=== PATIENT | female | born 1935 | race Caucasian/White ===

== ENCOUNTER 2016-11-10 08:00 | Outpatient (CLI) | payer MEDICARE, BC | END 2016-11-10 08:01 | disposition home or self-care (01) | DX: M79.661 Pain in right lower leg (principal) ==

== ENCOUNTER 2017-02-02 07:54 | Outpatient (CLI) | payer MEDICARE, BC | END 2017-02-02 07:55 | disposition home or self-care (01) | DX: E03.9 Hypothyroidism, unspecified (principal); E78.2 Mixed hyperlipidemia; E55.9 Vitamin D deficiency, unspecified; Z79.899 Other long term (current) drug therapy ==

== ENCOUNTER 2018-02-08 08:00 | Outpatient (CLI) | payer MEDICARE, BC ==
[2018-02-08 15:00] LABS: BASOPHILS % (AUTO) 0.5 %; EOSINOPHILS # (AUTO) 0.1 10^3/uL (0.0-0.7); EOSINOPHILS % (AUTO) 2.4 %; HGB - HEMOGLOBIN 13.4 g/dL (12.0-16.0); LYMPHOCYTES # (AUTO) 1.4 10^3/uL (1.5-3.5); LYMPHOCYTES % (AUTO) 34.8 %; MEAN CORPUSCULAR HEMOGLOBIN 33.1 pg (27.0-31.0); MEAN CORPUSCULAR HGB CONC 34.2 g/dL (32.0-36.0); MEAN CORPUSCULAR VOLUME 96.8 fL (81.0-99.0); MEAN PLATELET VOLUME 7.4 fL (7.9-10.8); MONOCYTES # (AUTO) 0.4 10^3/uL (0.0-1.0); NEUTROPHILS # (AUTO) 2.2 10^3/uL (1.5-6.6); NEUTROPHILS % (AUTO) 53.3 %; PLT - PLATELET COUNT 255 10^3/uL (130-450); RED BLOOD COUNT 4.03 10^6/uL (4.20-5.40); RED CELL DISTRIBUTION WIDTH 13.7 % (12.0-15.0); WHITE BLOOD COUNT 4.1 x10^3/uL (4.8-10.8)
[2018-02-08 15:14] LABS: ALBUMIN 4.6 g/dL (3.2-5.5); ALBUMIN/GLOBULIN RATIO 1.5 (1.0-2.2); ALKALINE PHOSPHATASE 61 IU/L (42-121); ALT ALANINE AMINOTRANSFERASE 21 IU/L (10-60); AST ASPARTATE AMINOTRANSFERASE 27 IU/L (10-42); BILIRUBIN,TOTAL 1.1 mg/dL (0.2-1.0); BUN - BLOOD UREA NITROGEN 11 mg/dL (6-20); CALCIUM 9.6 mg/dL (8.5-10.3); CARBON DIOXIDE - CO2 24 mmol/L (21-32); CHLORIDE 92 mmol/L (101-111); CHOL/HDL RATIO 2.7 (<4.4); CHOLESTEROL 220 mg/dL; CREATININE 0.6 mg/dL (0.4-1.0); GFR - MDRD 95 (>89); GLUCOSE 80 mg/dL (70-100); HDL CHOLESTEROL 83 mg/dL; LDL CHOLESTEROL,CALCULATED 114 mg/dL; LDL/HDL RATIO 1.4 (<4.4); SODIUM 125 mmol/L (135-145); TOTAL PROTEIN 7.7 g/dL (6.7-8.2); VLDL CHOLESTEROL 23 mg/dL
== END 2018-02-08 08:01 | disposition home or self-care (01) ==
LOC: LAB.R 08:00
PROVIDERS: ATTEND Physician Assistant Medical
DX: E55.9 Vitamin D deficiency, unspecified (principal); Z79.899 Other long term (current) drug therapy; I10 Essential (primary) hypertension; E78.2 Mixed hyperlipidemia
CPT/HCPCS: 80053; 80061; 82306; 83721; 84443; 85025

== ENCOUNTER 2018-03-08 08:00 | Outpatient (CLI) | payer MEDICARE, BC | END 2018-03-08 08:01 | disposition home or self-care (01) | LOC: LAB.N 08:00 | PROVIDERS: ATTEND Physician Assistant Medical | DX: Z00.01 Encounter for general adult medical examination with abnormal findings (principal); Z79.899 Other long term (current) drug therapy | CPT/HCPCS: 36415; 84132; 84295 ==

== ENCOUNTER 2018-04-26 08:00 | Outpatient (CLI) | payer MEDICARE, BC ==
[2018-04-26 12:34] LABS: BASOPHILS % (AUTO) 0.7 %; EOSINOPHILS # (AUTO) 0.1 10^3/uL (0.0-0.7); EOSINOPHILS % (AUTO) 3.2 %; HGB - HEMOGLOBIN 12.5 g/dL (12.0-16.0); LYMPHOCYTES # (AUTO) 1.7 10^3/uL (1.5-3.5); LYMPHOCYTES % (AUTO) 38.3 %; MEAN CORPUSCULAR HEMOGLOBIN 34.1 pg (27.0-31.0); MEAN CORPUSCULAR HGB CONC 35.3 g/dL (32.0-36.0); MEAN CORPUSCULAR VOLUME 96.6 fL (81.0-99.0); MEAN PLATELET VOLUME 7.5 fL (7.9-10.8); MONOCYTES # (AUTO) 0.4 10^3/uL (0.0-1.0); MONOCYTES % (AUTO) 9.5 %; NEUTROPHILS # (AUTO) 2.1 10^3/uL (1.5-6.6); NEUTROPHILS % (AUTO) 48.3 %; PLT - PLATELET COUNT 256 10^3/uL (130-450); RED BLOOD COUNT 3.68 10^6/uL (4.20-5.40); RED CELL DISTRIBUTION WIDTH 13.1 % (12.0-15.0); WHITE BLOOD COUNT 4.4 x10^3/uL (4.8-10.8)
[2018-04-26 13:16] LABS: THYROID STIMULATING HORMONE 1.64 uIU/mL (0.34-5.60)
[2018-04-26 13:18] LABS: FREE T4 (FREE THYROXINE) 1.37 ng/dL (0.58-1.64)
[2018-04-26 13:41] LABS: ALBUMIN 4.2 g/dL (3.2-5.5); ALBUMIN/GLOBULIN RATIO 1.6 (1.0-2.2); ALKALINE PHOSPHATASE 63 IU/L (42-121); ALT ALANINE AMINOTRANSFERASE 20 IU/L (10-60); AST ASPARTATE AMINOTRANSFERASE 24 IU/L (10-42); BUN - BLOOD UREA NITROGEN 12 mg/dL (6-20); CALCIUM 9.9 mg/dL (8.5-10.3); CARBON DIOXIDE - CO2 25 mmol/L (21-32); CHLORIDE 98 mmol/L (101-111); CHOL/HDL RATIO 2.3 (<4.4); CHOLESTEROL 191 mg/dL; CREATININE 0.5 mg/dL (0.4-1.0); GFR - MDRD 117 (>89); GLUCOSE 97 mg/dL (70-100); HDL CHOLESTEROL 83 mg/dL; LDL CHOLESTEROL,CALCULATED 95 mg/dL; LDL/HDL RATIO 1.1 (<4.4); SODIUM 131 mmol/L (135-145); TOTAL PROTEIN 6.8 g/dL (6.7-8.2); VLDL CHOLESTEROL 13 mg/dL
== END 2018-04-26 08:01 ==
LOC: LAB.WCP 08:00
PROVIDERS: ATTEND Physician Assistant
DX: I10 Essential (primary) hypertension (principal); E78.5 Hyperlipidemia, unspecified; E03.9 Hypothyroidism, unspecified
CPT/HCPCS: 36415; 80053; 80061; 83721; 84439; 84443; 85025

== ENCOUNTER 2018-05-15 11:08 | Outpatient (CLI) | payer MEDICARE, BC | END 2018-05-15 11:09 | disposition home or self-care (01) | LOC: DI 11:08 | PROVIDERS: ATTEND Physician Assistant | DX: I10 Essential (primary) hypertension (principal) | CPT/HCPCS: 93306 ==

== ENCOUNTER 2018-05-31 09:08 | Outpatient (CLI) | payer MEDICARE, BC ==
--- NOTE | 2018-05-31 10:31 | Ultrasound Report ---
Reason: ABDOMINAL DISCOMFORT Procedure Date: 05/31/2018 Accession Number: [id number] / [id number] Procedure: US - Abdomen Complete CPT Code: FULL RESULT: EXAM: ABDOMEN ULTRASOUND EXAM DATE: 05/31/2018 09:56 AM. CLINICAL HISTORY: ABDOMINAL DISCOMFORT. COMPARISON: None. TECHNIQUE: Real-time scanning was performed with static images obtained. FINDINGS: Liver: The liver is mildly and diffusely echogenic. Normal contour. No masses. 11.9 cm. Main portal vein flow: Hepatopetal. Gallbladder: No stones, wall thickening, or sonographic Huang's sign. Biliary System: Common bile duct measures 7 mm. No intrahepatic or extrahepatic ductal dilation. Pancreas: Visualized pancreas is unremarkable. Kidneys: Right: 10.8 cm longitudinally. No contour-deforming mass, stones, or hydronephrosis. There is mild ureterectasis. Left: 10.3 cm longitudinally. No contour-deforming mass, stones, or hydronephrosis. Spleen: 8 cm. Normal in size and echotexture. Aorta and Inferior Vena Cava: Unremarkable. IMPRESSION: Mild hepatic steatosis RADIA
== END 2018-05-31 09:09 | disposition home or self-care (01) ==
LOC: DI 09:08
PROVIDERS: ATTEND Physician Assistant
DX: K76.0 Fatty (change of) liver, not elsewhere classified (principal); R10.9 Unspecified abdominal pain
CPT/HCPCS: 76700

== ENCOUNTER 2018-10-25 09:20 | Outpatient (CLI) | payer MEDICARE, BC ==
[2018-10-25 12:24] LABS: BASOPHILS % (AUTO) 0.9 %; EOSINOPHILS # (AUTO) 0.1 10^3/uL (0.0-0.7); EOSINOPHILS % (AUTO) 2.4 %; HGB - HEMOGLOBIN 12.6 g/dL (12.0-16.0); LYMPHOCYTES # (AUTO) 1.3 10^3/uL (1.5-3.5); LYMPHOCYTES % (AUTO) 31.8 %; MEAN CORPUSCULAR HEMOGLOBIN 33.8 pg (27.0-31.0); MEAN CORPUSCULAR HGB CONC 34.6 g/dL (32.0-36.0); MEAN CORPUSCULAR VOLUME 97.7 fL (81.0-99.0); MEAN PLATELET VOLUME 7.3 fL (7.9-10.8); MONOCYTES # (AUTO) 0.4 10^3/uL (0.0-1.0); MONOCYTES % (AUTO) 9.2 %; NEUTROPHILS # (AUTO) 2.3 10^3/uL (1.5-6.6); NEUTROPHILS % (AUTO) 55.7 %; PLT - PLATELET COUNT 265 10^3/uL (130-450); RED BLOOD COUNT 3.72 10^6/uL (4.20-5.40); RED CELL DISTRIBUTION WIDTH 13.5 % (12.0-15.0); WHITE BLOOD COUNT 4.2 x10^3/uL (4.8-10.8)
[2018-10-25 12:47] LABS: ALBUMIN 4.3 g/dL (3.2-5.5); ALBUMIN/GLOBULIN RATIO 1.5 (1.0-2.2); CALCIUM 9.8 mg/dL (8.5-10.3); CREATININE 0.6 mg/dL (0.4-1.0); TOTAL PROTEIN 7.1 g/dL (6.7-8.2)
== END 2018-10-25 23:59 | disposition home or self-care (01) ==
LOC: LAB.WCP 09:20
PROVIDERS: ATTEND Physician Assistant
DX: I10 Essential (primary) hypertension (principal)
CPT/HCPCS: 36415; 80053; 85025

== ENCOUNTER 2019-02-26 08:00 | Outpatient (CLI) | payer MEDICARE, BC ==
[2019-02-26 19:03] LABS: BASOPHILS % (AUTO) 0.6 %; EOSINOPHILS # (AUTO) 0.1 10^3/uL (0.0-0.7); EOSINOPHILS % (AUTO) 1.9 %; HGB - HEMOGLOBIN 12.8 g/dL (12.0-16.0); LYMPHOCYTES # (AUTO) 1.3 10^3/uL (1.5-3.5); LYMPHOCYTES % (AUTO) 29.4 %; MEAN CORPUSCULAR HEMOGLOBIN 33.2 pg (27.0-31.0); MEAN CORPUSCULAR HGB CONC 34.2 g/dL (32.0-36.0); MEAN PLATELET VOLUME 7.2 fL (7.9-10.8); MONOCYTES # (AUTO) 0.4 10^3/uL (0.0-1.0); MONOCYTES % (AUTO) 8.4 %; NEUTROPHILS # (AUTO) 2.6 10^3/uL (1.5-6.6); NEUTROPHILS % (AUTO) 59.7 %; PLT - PLATELET COUNT 281 10^3/uL (130-450); RED BLOOD COUNT 3.86 10^6/uL (4.20-5.40); RED CELL DISTRIBUTION WIDTH 13.5 % (12.0-15.0); WHITE BLOOD COUNT 4.3 x10^3/uL (4.8-10.8)
[2019-02-26 19:21] LABS: ALBUMIN 4.6 g/dL (3.2-5.5); ALBUMIN/GLOBULIN RATIO 1.7 (1.0-2.2); BILIRUBIN,TOTAL 0.7 mg/dL (0.2-1.0); CALCIUM 10.2 mg/dL (8.5-10.3); CREATININE 0.7 mg/dL (0.4-1.0); TOTAL PROTEIN 7.3 g/dL (6.7-8.2)
== END 2019-02-26 08:01 | disposition home or self-care (01) ==
LOC: LAB.WCP 08:00
PROVIDERS: ATTEND Physician Assistant
DX: R53.82 Chronic fatigue, unspecified (principal); R41.3 Other amnesia
CPT/HCPCS: 36415; 80053; 82607; 82746; 84443; 85025

== ENCOUNTER 2019-08-02 09:08 | Outpatient (CLI) | payer MEDICARE, BC ==
[2019-08-02 12:55] LABS: BASOPHILS % (AUTO) 0.5 %; EOSINOPHILS # (AUTO) 0.1 10^3/uL (0.0-0.7); EOSINOPHILS % (AUTO) 1.5 %; HGB - HEMOGLOBIN 12.6 g/dL (12.0-16.0); LYMPHOCYTES # (AUTO) 1.5 10^3/uL (1.5-3.5); LYMPHOCYTES % (AUTO) 24.6 %; MEAN CORPUSCULAR HEMOGLOBIN 31.6 pg (27.0-31.0); MEAN CORPUSCULAR HGB CONC 33.8 g/dL (32.0-36.0); MEAN CORPUSCULAR VOLUME 93.5 fL (81.0-99.0); MEAN PLATELET VOLUME 9.3 fL (7.9-10.8); MONOCYTES # (AUTO) 0.6 10^3/uL (0.0-1.0); NEUTROPHILS # (AUTO) 3.8 10^3/uL (1.5-6.6); NEUTROPHILS % (AUTO) 62.7 %; PLT - PLATELET COUNT 286 10^3/uL (130-450); RED BLOOD COUNT 3.99 10^6/uL (4.20-5.40); RED CELL DISTRIBUTION WIDTH 12.7 % (12.0-15.0); WHITE BLOOD COUNT 6.1 x10^3/uL (4.8-10.8)
[2019-08-02 13:19] LABS: ALBUMIN 4.4 g/dL (3.2-5.5); ALBUMIN/GLOBULIN RATIO 1.6 (1.0-2.2); BILIRUBIN,TOTAL 0.7 mg/dL (0.2-1.0); CALCIUM 9.6 mg/dL (8.5-10.3); CREATININE 0.7 mg/dL (0.4-1.0); TOTAL PROTEIN 7.2 g/dL (6.7-8.2)
== END 2019-08-02 23:59 | disposition home or self-care (01) ==
LOC: LAB.WCP 09:08
PROVIDERS: ATTEND Physician Assistant
DX: E87.1 Hypo-osmolality and hyponatremia (principal); E03.9 Hypothyroidism, unspecified; R19.7 Diarrhea, unspecified
CPT/HCPCS: 36415; 80053; 84443; 85025

== ENCOUNTER 2019-08-12 09:31 | Outpatient (CLI) | payer MEDICARE, BC ==
[2019-08-12 16:03] LABS: CALCIUM 9.7 mg/dL (8.5-10.3); CREATININE 0.8 mg/dL (0.4-1.0)
== END 2019-08-12 23:59 | disposition home or self-care (01) ==
LOC: LAB.WCP 09:31
PROVIDERS: ATTEND Physician Assistant
DX: E87.1 Hypo-osmolality and hyponatremia (principal)
CPT/HCPCS: 36415; 80048

== ENCOUNTER 2020-08-25 16:54 | Outpatient (CLI) | payer MEDICARE, BC ==
--- NOTE | 2020-08-25 17:35 | XRAY Report ---
PROCEDURE: Hand 3 View RT INDICATIONS: Rule out fracture s/p fall TECHNIQUE: 3 views of the hand(s) acquired. COMPARISON: None FINDINGS: Bones: Acute oblique fracture through distal shaft and neck of fifth metacarpal bone is seen with sli ght volar and lateral displacement at fracture site. Osteoarthritic changes throughout right-hand an d wrist is seen. No suspicious bony lesions. Soft tissues: No suspicious soft tissue calcifications. Soft tissue swelling over fifth metacarpal f racture site is seen. IMPRESSION: Acute slightly displaced oblique fracture through distal shaft and neck of fifth metacarpal bone as a sanjuanita. Reviewed by: Kamari Xiong MD on 08/25/2020 4:33 PM [place] Approved by: Kamari Xiong MD on 08/25/2020 4:33 PM [facility] [place] Station ID: [id number]
--- NOTE | 2020-08-25 17:36 | XRAY Report ---
PROCEDURE: Shoulder 3 View RT INDICATIONS: Rule out fracture s/p fall TECHNIQUE: 3 views of the shoulder were acquired. COMPARISON: None. FINDINGS: Bones: Acute comminuted fracture involving distal right clavicle is seen with minimal depression of d istal clavicular head and overlapping of fracture site. Acromioclavicular joint and glenohumeral join t osteoarthritic changes are seen. No dislocation. No suspicious bony lesions. Visualized ribs appea r intact. Soft tissues: No suspicious soft tissue calcifications. IMPRESSION: Acute comminuted slightly depressed right distal clavicular fracture as above. Reviewed by: Kamari Xiong MD on 08/25/2020 4:35 PM [place] Approved by: Kamari Xiong MD on 08/25/2020 4:35 PM [facility] Station ID: [id number]
== END 2020-08-25 16:55 | disposition home or self-care (01) ==
LOC: DI 16:54
PROVIDERS: ATTEND Nurse Practitioner Gerontology
DX: S62.326A Displaced fracture of shaft of fifth metacarpal bone, right hand, initial encounter for closed fracture (principal); S62.336A Displaced fracture of neck of fifth metacarpal bone, right hand, initial encounter for closed fracture; S42.031A Displaced fracture of lateral end of right clavicle, initial encounter for closed fracture; M19.031 Primary osteoarthritis, right wrist; M19.011 Primary osteoarthritis, right shoulder

== ENCOUNTER 2020-10-20 09:13 | Outpatient (CLI) | payer MEDICARE, BC ==
--- NOTE | 2020-10-20 12:01 | Ultrasound Report ---
PROCEDURE: Retroperitoneal INDICATIONS: HISTORY UTI TECHNIQUE: Real-time scanning was performed of the retroperitoneal organs, with image documentation. COMPARISON: Prior abdominal ultrasound 05/31/2018 FINDINGS: Kidneys: Kidneys are normal in size. Right kidney measures 12.4 cm long; left kidney measures 10.8 cm long. Right renal cortical thickness is 0.8 cm; left renal cortical thickness is 1.3 cm. No miriam d masses, hydronephrosis, or nephrolithiasis on the left. On the right there is moderate to moderate ly severe hydronephrosis and hydroureter with the distal ureter not seen due to overlying bowel gas. No urinary tract stones are seen bilaterally. A left ureteral jet was not visualized at the bladder a ssessment. A normal right ureteral jet was seen. Pancreas: Visualized portions of the pancreas are sonographically normal. Aorta: Visualized aorta is normal in caliber at 3 cm or less. Iliac arteries: Proximal common iliac arteries are normal in caliber at 2.5 cm or less. IVC: Intrahepatic inferior vena cava is patent. Miscellaneous: No free abdominal fluid. Prevoid bladder volume is 201 cc, IMPRESSION: Right-sided hydronephrosis and hydroureter which extends inferiorly to an area obscured by overlying bowel gas. Both mass and a urinary tract stone involving the ureter could produce this appearance and for this reason follow-up by CT IVP scanning is recommended which will include noncontrast scanning for most accurate stone detection and excretion phase of contrast enhanced imaging for identification of potential urothelial mass. Reviewed by: Steve Dacosta MD on 10/20/2020 12:00 PM [facility] Approved by: Steve Dacosta MD on 10/20/2020 12:00 PM PST Station ID: [id number]
== END 2020-10-20 09:14 | disposition home or self-care (01) ==
LOC: DI 09:13
PROVIDERS: ATTEND Urology
DX: N13.30 Unspecified hydronephrosis (principal)

== ENCOUNTER 2020-10-23 18:14 | Outpatient (CLI) | payer MEDICARE, BC ==
--- NOTE | 2020-10-23 13:53 | XRAY Report ---
PROCEDURE: Hand 3 View RT INDICATIONS: DISPLACED FX OF NECK OF FIFTH METACARPAL TECHNIQUE: 3 views of the hand(s) acquired. COMPARISON: 08/25/2020 FINDINGS: Grossly unchanged alignment of fifth carpal fracture. There is interval healing callus formation Soft tissues: No suspicious soft tissue calcifications. First CMC and triscaphe joint degeneration. IMPRESSION: Unchanged alignment of healing right fifth metacarpal fracture Reviewed by: Destin Jordan MD on 10/23/2020 1:52 PM PST Approved by: Destin Jordan MD on 10/23/2020 1:52 PM PST Station ID: [id number]
== END 2020-10-23 23:59 | disposition home or self-care (01) ==
LOC: DI.N 18:14
PROVIDERS: ATTEND Physician Assistant
DX: S62.336A Displaced fracture of neck of fifth metacarpal bone, right hand, initial encounter for closed fracture (principal)

== ENCOUNTER 2020-10-27 08:00 | Outpatient (CLI) | payer MEDICARE, BC ==
--- NOTE | 2020-10-27 12:58 | XRAY Report ---
PROCEDURE: Clavicle RT INDICATIONS: RIGHT CLAVICULAR FRACTURE TECHNIQUE: 2 views of the clavicle were acquired. COMPARISON: 08/25/2020. FINDINGS: Bones: Again noted is inferiorly displaced distal right clavicular shaft fracture with interval callu s formation surrounding fracture site. Overall alignment of right clavicle is unchanged. No new fract ure or dislocation. No suspicious bony lesions. Soft tissues: No suspicious soft tissue calcifications. IMPRESSION: Healing mildly depressed right distal clavicular fracture with stable right clavicular alignment. No new fracture or dislocation. Reviewed by: Kamari Xiong MD on 10/27/2020 12:57 PM PST Approved by: Kamari Xiong MD on 10/27/2020 12:57 PM PST Station ID: [id number]
== END 2020-10-27 23:59 | disposition home or self-care (01) ==
LOC: DI.N 08:00
PROVIDERS: ATTEND Nurse Practitioner Gerontology
DX: S42.031A Displaced fracture of lateral end of right clavicle, initial encounter for closed fracture (principal)

== ENCOUNTER 2020-12-25 16:59 | Outpatient (CLI) | payer MEDICARE, BC | END 2020-12-25 17:00 | disposition critical access hospital (66) | LOC: EMS 16:59 | DX: S09.90XA Unspecified injury of head, initial encounter (principal); W03.XXXA Other fall on same level due to collision with another person, initial encounter; Y92.198 Other place in other specified residential institution as the place of occurrence of the external cause | CPT/HCPCS: A0425; A0429 ==

== ENCOUNTER 2020-12-25 17:16 | Emergency (ER) | payer MEDICARE, BC ==
[2020-12-25] MEDS ORDERED: TETANUS/DIPHTHERIA/PERTUSSIS 0.5 ML SYRINGE IM ONE (17:28)
--- OUTSIDE RECORDS SUMMARY | 2020-12-25 17:37 | EXTERNAL MEDICAL SUMMARY RPT | Continuity of Care Document ---
:1935 Demographics Phone Unavailable Preferred Language Unknown Marital Status Unknown Cheondoism Affiliation Unknown Race Unknown Ethnic Group Unknown Author Organization [place] Address [address] [phone] Phone Social History date description facility [phone]
[2020-12-25] MEDS ORDERED: MORPHINE 2 MG/ML CARPUJECT IVP STA (18:07)
--- NOTE | 2020-12-25 18:07 | ED Physician Documentation ---
History of Present Illness - Stated complaint Stated Complaint: GLF - Chief complaint Chief Complaint: Trauma Hd/Nk - History obtained from History obtained from: Patient, EMS - History of Present Illness Timing: Today Pain level max: 7 Pain level now: 5 - Additonal information Additional information: Patient is an 85-year-old female who presents to the emergency department after ground-level fall today. She tripped and fell walking to the dining room for dinner. Landed on her face. Has a laceration to the right eyebrow and bridge of right nose. Swelling to the right periorbital area. Denies any other injuries. Patient is not on blood thinners. Unknown last tetanus Review of Systems Ten Systems: 10 systems reviewed and negative Constitutional: denies: Fever, Chills Ears: denies: Ear pain Nose: denies: Rhinorrhea / runny nose, Congestion Throat: denies: Sore throat Cardiac: denies: Chest pain / pressure, Palpitations Respiratory: denies: Dyspnea, Cough GI: denies: Vomiting, Diarrhea Skin: denies: Rash Musculoskeletal: denies: Neck pain, Back pain Neurologic: denies: Focal weakness, Numbness, Confused PD PAST MEDICAL HISTORY - Present Medications Home Medications: Ambulatory Orders Medication Instructions Recorded Confirmed Aspirin [[place] Aspirin] 81 mg PO DAILY 12/25/20 12/25/20 Atorvastatin [Lipitor] 20 mg PO DAILY 12/25/20 12/25/20 Cholecalciferol [Vitamin D3] 2,000 unit PO DAILY 12/25/20 12/25/20 Donepezil [Aricept] 2 tab PO DAILY 12/25/20 12/25/20 Levothyroxine [Synthroid] 75 mcg PO DAILY 12/25/20 12/25/20 Magnesium Hydroxide [Dulcolax] 400 mg PO DAILY 12/25/20 12/25/20 - Allergies Allergies/Adverse Reactions: Allergies Allergy/AdvReac Type Severity Reaction Status Date / Time amoxicillin Allergy Rash Verified 12/25/20 17:32 PD ED PE NORMAL - Vitals Vital signs reviewed: Yes - General General: Alert and oriented X 3, No acute distress, Well developed/nourished - HEENT HEENT: Atraumatic, PERRL, Moist mucous membranes, Other (Laceration to the bridge of the right nose, there is also a laceration to the right periorbital ecchymosis to the right orbit. Tenderness and swelling over the bridge of the nose. Otherwise normal facial exam. 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, No motor deficit, No sensory deficit, Normal speech Eye Opening: Spontaneous Motor: Obeys Commands Verbal: Oriented GCS Score: 15 - Psych Psych: Normal mood, Normal affect Results - Vitals Vitals: Vital Signs - 24 hr 12/25/20 12/25/20 17:24 18:37 Temperature 36.0 C L Heart Rate 82 84 Respiratory 14 15 Rate Blood Pressure 166/86 H 167/76 H O2 Saturation 97 97 Oxygen O2 Source Room air - Labs Labs: Laboratory Tests 12/25/20 12/25/20 12/25/20 18:15 18:15 18:15 WBC 6.6 RBC 3.32 L Hgb 10.5 L Hct 32.3 L MCV 97.3 MCH 31.6 H MCHC 32.5 RDW 13.8 Plt Count 251 MPV 8.5 Neut # (Auto) 4.5 Lymph # (Auto) 1.4 L Newberry # (Auto) 0.6 Eos # (Auto) 0.1 Baso # (Auto) 0.0 Absolute Nucleated RBC 0.00 Nucleated RBC % 0.0 PT 11.2 INR 1.0 APTT 26.1 Sodium 126 L Potassium 3.5 Chloride 94 L Carbon Dioxide 23 Anion Gap 9.0 BUN 17 Creatinine 0.9 Estimated GFR (MDRD) 59 L Glucose 97 Calcium 9.2 Total Bilirubin 0.9 AST 22 ALT 19 Alkaline Phosphatase 69 Total Protein 6.5 L Albumin 3.9 Globulin 2.6 Albumin/Globulin Ratio 1.5 - Rads (name of study) CT head Radiology: Prelim report reviewed, EMP read contemporaneously, See rad report CT maxillofacial Radiology: Prelim report reviewed, EMP read contemporaneously, See rad report CT cervical spine Radiology: Prelim report reviewed, EMP read contemporaneously, See rad report Procedures - Laceration (location) right eyebrow Length in cm: 2 Wound type: Irregular, Superficial, Clean Neurovascular status: Sensory intact, Motor intact, Vascular intact Wound preparation: Irrigated copiously NS, Wound explored, To the base Skin layer closure: Dermabond Other: Patient tolerated well, No complications, Neurovascular intact R nasal bridge Length in cm: 1 Wound type: Linear, Superficial, Clean Neurovascular status: Sensory intact, Motor intact, Vascular intact Wound preparation: Irrigated copiously NS Skin layer closure: Dermabond Other: Patient tolerated well, No complications, Neurovascular intact PD MEDICAL DECISION MAKING - ED course Complexity details: reviewed results, re-evaluated patient, considered differential, d/w patient ED course: Lacerations repaired with Dermabond. Tolerated well. Patient has a subdural hemorrhage. Will need transfer for higher level of care. Discussed the case with Dr. Ashraf, trauma surgery at [facility] in [place] who accepts in transfer. Discussed with Dr. Ibarra, emergency department physician who graciously accepts in transfer as well. Tdap given. COBRA forms completed. This document was made in part using voice recognition software. While efforts are made to proofread this document, sound alike and grammatical errors may occur. CT Maxillofacial" IMPRESSION: 1. Comminuted, mildly displaced bilateral nasal bone fractures. 2. Minimally displaced oblique fracture of the anterosuperior nasal septum. 3. Right frontal scalp hematoma. 4. Chronic left maxillary paranasal sinus disease. CT HEAD IMPRESSION: 1. Acute extra-axial hemorrhage along the left posterior parieto-occipital convexity measuring up to 13 mm in thickness. There is mild mass effect on the occipital horn of left lateral ventricle without midline shift or transtentorial herniation. 2. Right frontal scalp hematoma. No acute calvarial fracture is seen. 3. Facial structures are better evaluated on the dedicated maxillofacial CT performed on the same day. Please see report for full details. CT C-spine IMPRESSION: 1. No acute cervical spine fracture or paraspinous edema. 2. Multilevel spondylosis including grade 1 anterolisthesis of C2 on C3 and C3 on C4 as well as grade 1 anterolisthesis of C4 on C5. Departure - Departure Disposition: 02 Transfer Acute Care Hosp Clinical Impression: Subdural hemorrhage Nasal bone fractures Qualifiers: Encounter type: initial encounter Fracture type: closed Qualified Code(s): S02.2XXA - Fracture of nasal bones, initial encounter for closed fracture Facial laceration Qualifiers: Encounter type: initial encounter Qualified Code(s): S01.81XA - Laceration without foreign body of other part of head, initial encounter Condition: Stable
--- NOTE | 2020-12-25 18:11 | CT Report ---
PROCEDURE: HEAD WO INDICATIONS: fall, head injury TECHNIQUE: Noncontrast 4.5 mm thick angled axial sections acquired from the foramen magnum to the vertex. For r adiation dose reduction, the following was used: automated exposure control, adjustment of mA and/or kV according to patient size. COMPARISON: None. FINDINGS: Image quality: Excellent. CSF spaces: Mixed density, but predominantly hyperattenuating, extra-axial hemorrhage is seen along the left parieto-occipital convexity measuring up to 13 mm in thickness. No adjacent skull fracture i s identified. There is mild mass effect on the left posterior cerebral hemisphere with mild narrowing of the occipital horn of the left lateral ventricle without significant midline shift or transtentor ial herniation. No acute subarachnoid blood products are identified. Brain: No intraparenchymal hemorrhage or contusion is seen. Scattered hypodensities in the subcortica l and periventricular white matter compatible with chronic microvascular ischemic changes. There is m ild diffuse age-related cerebral volume loss. Skull and face: A left frontal scalp hematoma is noted. Nasal bone fractures are better visualized on the dedicated maxillofacial CT performed at the same time. Postsurgical changes are seen in the left globe from prior cataract/cataract surgery. Chronic appearing thickening of the right parietal tequila rium is seen without surrounding edema or hemorrhage. Sinuses: The mastoid air cells are clear. There is partial opacification of the anterior nasal cavity . Mucosal thickening is seen in the bilateral ethmoid air cells in the left maxillary sinus. The fron alexa and sphenoid sinuses are clear. IMPRESSION: 1. Acute extra-axial hemorrhage along the left posterior parieto-occipital convexity measuring up to 13 mm in thickness. There is mild mass effect on the occipital horn of left lateral ventricle withou t midline shift or transtentorial herniation. 2. Right frontal scalp hematoma. No acute calvarial fracture is seen. 3. Facial structures are better evaluated on the dedicated maxillofacial CT performed on the same da y. Please see report for full details. Findings were discussed with the ordering physician, Dr. Olson, by telephone on 12/25/2020 at 6:04 PM. Reviewed by: Seb Mayer MD on 12/25/2020 6:10 PM PDT Approved by: Seb Mayer MD on 12/25/2020 6:10 PM PDT Station ID: [id number]
--- NOTE | 2020-12-25 18:18 | CT Report ---
PROCEDURE: MAXILLOFACIAL WO INDICATIONS: fall, R periorbital and nasal swelling/laceration TECHNIQUE: Noncontrast 1.5 mm thick axial images acquired from the mandible through the frontal sinuses, with co foster and sagittal reformatting. For radiation dose reduction, the following was used: automated ex posure control, adjustment of mA and/or kV according to patient size. COMPARISON: None. FINDINGS: Image quality: Excellent. Bones and teeth: A right frontal periorbital scalp hematoma is seen. The orbits and included calvari um are intact. Comminuted, mildly displaced nasal bone fractures are seen bilaterally with surroundin g edema/hemorrhage. The nasal septum demonstrates a minimally displaced fracture anteriorly (image 11 of coronal series 5). There is circumferential mucosal thickening in the left maxillary sinus with c alcified material inferiorly that is most likely related to chronic sinusitis. No acute maxillary sin us fracture is seen. Visualized portions of the mandible demonstrate no fractures or subluxation. De generative changes are seen in the temporomandibular joints bilaterally. Zygomatic arches are intact. Pterygoid plates are intact. Visualized portions of the skull base and auditory canals are intact. The cervical spine is better evaluated on dedicated cervical spine CT performed the same time. Plea se see the report from that study for full details. Sinuses: Moderate mucosal thickening is seen in the left maxillary sinus with calcified material, mos t likely related to chronic sinusitis. The right maxillary sinus is clear. There is mucosal thickenin g in the bilateral anterior ethmoid air cells. The sphenoid sinuses and frontal sinuses are clear. Th e mastoid air cells are clear. Soft tissues a right frontal scalp hematoma is noted. Soft tissue edema is seen overlying the nose. N o enlarged lymph nodes. Thinning of the right ocular lens is compatible with prior cataract/catarac t surgery. Vascular: Visualized vascular structures appear normal in the absence of contrast. Bony vascular fo ramina and canals are intact. IMPRESSION: 1. Comminuted, mildly displaced bilateral nasal bone fractures. 2. Minimally displaced oblique fracture of the anterosuperior nasal septum. 3. Right frontal scalp hematoma. 4. Chronic left maxillary paranasal sinus disease. Reviewed by: Seb Mayer MD on 12/25/2020 6:17 PM PDT Approved by: Seb Mayer MD on 12/25/2020 6:17 PM PDT Station ID: [id number]
[2020-12-25 18:22] LABS: BASOPHILS % (AUTO) 0.5 %; EOSINOPHILS # (AUTO) 0.1 10^3/uL (0.0-0.7); EOSINOPHILS % (AUTO) 0.9 %; HCT - HEMATOCRIT 32.3 % (37.0-47.0); HGB - HEMOGLOBIN 10.5 g/dL (12.0-16.0); LYMPHOCYTES # (AUTO) 1.4 10^3/uL (1.5-3.5); LYMPHOCYTES % (AUTO) 20.9 %; MEAN CORPUSCULAR HEMOGLOBIN 31.6 pg (27.0-31.0); MEAN CORPUSCULAR HGB CONC 32.5 g/dL (32.0-36.0); MEAN CORPUSCULAR VOLUME 97.3 fL (81.0-99.0); MEAN PLATELET VOLUME 8.5 fL (7.9-10.8); MONOCYTES # (AUTO) 0.6 10^3/uL (0.0-1.0); MONOCYTES % (AUTO) 9.6 %; NEUTROPHILS # (AUTO) 4.5 10^3/uL (1.5-6.6); NEUTROPHILS % (AUTO) 67.6 %; PLT - PLATELET COUNT 251 10^3/uL (130-450); RED BLOOD COUNT 3.32 10^6/uL (4.20-5.40); RED CELL DISTRIBUTION WIDTH 13.8 % (12.0-15.0); WHITE BLOOD COUNT 6.6 x10^3/uL (4.8-10.8)
--- NOTE | 2020-12-25 18:22 | CT Report ---
PROCEDURE: CERVICAL SPINE WO INDICATIONS: fall. neck pain TECHNIQUE: Noncontrast 3 mm thick sections acquired from the skull base to the T4 level. Sagittal and coronal r eformats were then constructed. For radiation dose reduction, the following was used: automated exp osure control, adjustment of mA and/or kV according to patient size. COMPARISON: None. FINDINGS: Image quality: Excellent. Bones: No acute fracture. There is mild grade 1 anterolisthesis of C2 on C3 and C3 on C4, and mild grade 1 retrolisthesis of C4 on C5. Findings are most likely related to degenerative changes rather t colvin acute injury given lack of surrounding edema. Multilevel degenerative disc disease is seen throug hout the cervical spine from C2-3 through C6-7. Uncovertebral and facet hypertrophy are seen througho ut the cervical spine, which are most severe at the left C2-3 facet. No significant narrowing of the bony spinal canal is seen. Visualized superior ribs are intact. Bilateral temporomandibular joint de generative changes are noted. Soft tissues: Prevertebral soft tissues are normal in thickness. No paravertebral hematomas. No ap ical pneumothoraces. IMPRESSION: 1. No acute cervical spine fracture or paraspinous edema. 2. Multilevel spondylosis including grade 1 anterolisthesis of C2 on C3 and C3 on C4 as well as grad e 1 anterolisthesis of C4 on C5. Reviewed by: Seb Mayer MD on 12/25/2020 6:21 PM PDT Approved by: Seb Mayer MD on 12/25/2020 6:21 PM PDT Station ID: [id number]
[2020-12-25 18:30] LABS: PT - PROTHROMBIN TIME 11.2 secs (9.9-12.6)
[2020-12-25 18:33] LABS: ALBUMIN 3.9 g/dL (3.2-5.5); ALBUMIN/GLOBULIN RATIO 1.5 (1.0-2.2); BILIRUBIN,TOTAL 0.9 mg/dL (0.2-1.0); CALCIUM 9.2 mg/dL (8.5-10.3); CREATININE 0.9 mg/dL (0.4-1.0); POTASSIUM 3.5 mmol/L (3.5-5.0); TOTAL PROTEIN 6.5 g/dL (6.7-8.2)
[2020-12-25 18:37] LABS: PARTIAL THROMBOPLASTIN TIME 26.1 secs (24.9-33.3)
[2020-12-25 19:09] VITALS: BP 152/74
[2020-12-25 19:55] LABS: B. PARAPERTUSSIS- RESP PCR PAN NOT DETECTED; B. PERTUSSIS- RESP PCR PANEL NOT DETECTED; C. PNEUMONIAE- RESP PCR PANEL NOT DETECTED; CORONAVIRUS 229E-RESP PCR NOT DETECTED; CORONAVIRUS HKU1-RESP PCR NOT DETECTED; CORONAVIRUS NL63-RESP PCR NOT DETECTED; CORONAVIRUS OC43-RESP PCR NOT DETECTED; HUMAN METAPNEUMOVIRUS NOT DETECTED; INFLUENZA A- RESP PCR PANEL NOT DETECTED; INFLUENZA B - RESP PCR PANEL NOT DETECTED; M. PNEUMONIAE- RESP PCR PANEL NOT DETECTED; PARAINFLUENZA VIRUS 1 NOT DETECTED; PARAINFLUENZA VIRUS 2 NOT DETECTED; PARAINFLUENZA VIRUS 3 NOT DETECTED; PARAINFLUENZA VIRUS 4 NOT DETECTED; RHINOVIRUS/ENTEROVIRUS NOT DETECTED; RSV- RESP PCR PANEL NOT DETECTED; SARS-CoV-2 -RESP PCR PANEL NOT DETECTED
== END 2020-12-25 19:40 | disposition short-term general hospital (02) ==
LOC: EDUNIT# → ED 17:16
DX: S06.5X0A Traumatic subdural hemorrhage without loss of consciousness, initial encounter (principal); S02.2XXA Fracture of nasal bones, initial encounter for closed fracture; S01.21XA Laceration without foreign body of nose, initial encounter; S01.111A Laceration without foreign body of right eyelid and periocular area, initial encounter; S01.81XA Laceration without foreign body of other part of head, initial encounter; S00.83XA Contusion of other part of head, initial encounter; W01.0XXA Fall on same level from slipping, tripping and stumbling without subsequent striking against object, initial encounter; Y93.01 Activity, walking, marching and hiking; Y92.128 Other place in nursing home as the place of occurrence of the external cause; Z23 Encounter for immunization; Z20.822 Contact with and (suspected) exposure to COVID-19; M47.812 Spondylosis without myelopathy or radiculopathy, cervical region; Z79.82 Long term (current) use of aspirin
CPT/HCPCS: 0202U; 12013; 36415; 80053; 85025; 85610; 85730; 90471; 99284

== ENCOUNTER 2020-12-25 19:46 | Outpatient (CLI) | payer MEDICARE, BC | END 2020-12-25 19:47 | disposition short-term general hospital (02) | LOC: EMS 19:46 | PROVIDERS: ATTEND Emergency Medicine | DX: S06.5X9A Traumatic subdural hemorrhage with loss of consciousness of unspecified duration, initial encounter (principal); S02.2XXA Fracture of nasal bones, initial encounter for closed fracture; W19.XXXA Unspecified fall, initial encounter | CPT/HCPCS: A0425; A0426 ==

== ENCOUNTER 2020-12-31 18:27 | Emergency (ER) | payer MEDICARE, BC ==
--- OUTSIDE RECORDS SUMMARY | 2020-12-31 18:30 | EXTERNAL MEDICAL SUMMARY RPT | Continuity of Care Document ---
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
--- OUTSIDE RECORDS SUMMARY | 2020-12-31 18:38 | EXTERNAL MEDICAL SUMMARY RPT | Continuity of Care Document ---
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
[2020-12-31 19:07] LABS: BASOPHILS % (AUTO) 0.7 %; EOSINOPHILS # (AUTO) 0.1 10^3/uL (0.0-0.7); EOSINOPHILS % (AUTO) 2.1 %; HGB - HEMOGLOBIN 10.5 g/dL (12.0-16.0); LYMPHOCYTES # (AUTO) 1.6 10^3/uL (1.5-3.5); LYMPHOCYTES % (AUTO) 28.3 %; MEAN CORPUSCULAR HEMOGLOBIN 32.2 pg (27.0-31.0); MEAN CORPUSCULAR HGB CONC 33.9 g/dL (32.0-36.0); MEAN CORPUSCULAR VOLUME 95.1 fL (81.0-99.0); MEAN PLATELET VOLUME 8.7 fL (7.9-10.8); MONOCYTES # (AUTO) 0.6 10^3/uL (0.0-1.0); MONOCYTES % (AUTO) 9.7 %; NEUTROPHILS # (AUTO) 3.4 10^3/uL (1.5-6.6); NEUTROPHILS % (AUTO) 58.9 %; PLT - PLATELET COUNT 300 10^3/uL (130-450); RED BLOOD COUNT 3.26 10^6/uL (4.20-5.40); RED CELL DISTRIBUTION WIDTH 13.9 % (12.0-15.0); WHITE BLOOD COUNT 5.8 x10^3/uL (4.8-10.8)
[2020-12-31 19:10] LABS: VBG BASE EXCESS 1.8 mmol/L (-2 - +2); VBG HCO3 26.2 mmol/L (23-28); VBG OXYGEN SATURATION 83.7 % (60-80); VBG PCO2 40.2 mmHg (41-51); VBG PH 7.432 (7.31-7.41); VBG PO2 45.7 mmHg (25-47); VBG TOTAL CO2 27.4 mmol/L (24-29)
--- NOTE | 2020-12-31 19:19 | XRAY Report ---
PROCEDURE: Chest 1 View X-Ray INDICATIONS: Chest Pain TECHNIQUE: One view of the chest was acquired. COMPARISON: None FINDINGS: Surgical changes and devices: None. Lungs and pleura: No pleural effusions or pneumothorax. Lungs are clear. Mediastinum: Mediastinal contours appear normal. Heart size is normal. Bones and chest wall: No suspicious bony lesions. Overlying soft tissues appear unremarkable. IMPRESSION: No evidence acute pulmonary process. Reviewed by: Garret Murguia MD on 12/31/2020 7:18 PM PDT Approved by: Garret Murguia MD on 12/31/2020 7:18 PM PDT Station ID: [id number]
[2020-12-31 19:25] LABS: ALBUMIN/GLOBULIN RATIO 1.3 (1.0-2.2); BILIRUBIN,TOTAL 0.8 mg/dL (0.2-1.0); CALCIUM 9.6 mg/dL (8.5-10.3); POTASSIUM 3.7 mmol/L (3.5-5.0)
[2020-12-31] MEDS ORDERED: ASPIRIN 325 MG TABLET PO STA (19:35)
--- NOTE | 2020-12-31 19:50 | ED Physician Documentation ---
History of Present Illness - Stated complaint Stated Complaint: SOA/LETHARGY - Chief complaint Chief Complaint: General - History obtained from History obtained from: Patient, Family (daughter. patient history slightly limited by patient dementia/memory issues) - Additonal information Additional information: 85-year-old woman with recent history of subdural hemorrhage status post ground- level fall 1 week ago, discharged from [facility] on Monday, presents with shortness of breath since that time, worsening over the past day associated with malaise and generalized fatigue. Patient also with intermittent chest discomfort localized to the right side, nonradiating, worse with deep breathing. She endorses bilateral leg swelling is not worse on one side than the other. History slightly limited by patient dementia. Daughter assisting in giving history. Review of Systems Ten Systems: 10 systems reviewed and negative Constitutional: denies: Fever Cardiac: reports: Chest pain / pressure Respiratory: reports: Dyspnea. denies: Cough PD PAST MEDICAL HISTORY - Past Medical History Past Medical History: Yes Cardiovascular: High cholesterol Endocrine/Autoimmune: HyPOthyroidism Musculoskeletal: Other Other Past Medical History: Polyosteoarthritis - Past Surgical History Past Surgical History: No - Present Medications Home Medications: Ambulatory Orders Medication Instructions Recorded Confirmed Aspirin [[place] Aspirin] 81 mg PO DAILY 12/25/20 12/31/20 Atorvastatin [Lipitor] 20 mg PO DAILY 12/25/20 12/31/20 Cholecalciferol [Vitamin D3] 2,000 unit PO DAILY 12/25/20 12/31/20 Donepezil [Aricept] 2 tab PO DAILY 12/25/20 12/31/20 Levothyroxine [Synthroid] 75 mcg PO DAILY 12/25/20 12/31/20 Magnesium Hydroxide [Dulcolax] 400 mg PO DAILY 12/25/20 12/31/20 - Allergies Allergies/Adverse Reactions: Allergies Allergy/AdvReac Type Severity Reaction Status Date / Time amoxicillin Allergy Rash Verified 12/31/20 18:32 - Social History Does the pt smoke?: No Smoking Status: Never smoker Does the pt drink ETOH?: No Does the pt have substance abuse?: No - Immunizations Immunizations are current?: Yes - POLST Patient has POLST: Yes PD ED PE NORMAL - Vitals Vital signs reviewed: Yes - General General: No acute distress, Well developed/nourished, Other (Alert and mentating at baseline) - HEENT HEENT: Atraumatic, PERRL, EOMI - Neck Neck: Supple, no meningeal sign - Cardiac Cardiac: RRR - Respiratory Respiratory: No respiratory distress, Clear bilaterally - Abdomen Abdomen: Non tender, Non distended - Derm Derm: Normal color, Warm and dry - Extremities Extremities: Other (1+ bilateral pitting edema) - Neuro Neuro: Other (Alert and oriented) - Psych Psych: Normal mood, Normal affect Results - Vitals Vitals: Vital Signs - 24 hr 12/31/20 12/31/20 12/31/20 18:32 19:23 21:00 Temperature 36.7 C Heart Rate 88 81 77 Respiratory 16 15 18 Rate Blood Pressure 140/65 H 131/74 H 141/87 H O2 Saturation 99 98 98 12/31/20 01/01/21 23:00 00:00 Temperature Heart Rate 79 74 Respiratory 17 17 Rate Blood Pressure 154/75 H 139/64 H O2 Saturation 99 98 Oxygen O2 Source Room air - Labs Labs: Laboratory Tests 12/31/20 12/31/20 12/31/20 19:00 19:00 19:00 WBC 5.8 RBC 3.26 L Hgb 10.5 L Hct 31.0 L MCV 95.1 MCH 32.2 H MCHC 33.9 RDW 13.9 Plt Count 300 MPV 8.7 Neut # (Auto) 3.4 Lymph # (Auto) 1.6 [place] # (Auto) 0.6 Eos # (Auto) 0.1 Baso # (Auto) 0.0 Absolute Nucleated RBC 0.00 Nucleated RBC % 0.0 D-Dimer VBG pH VBG pCO2 VBG pO2 VBG HCO3 VBG Total CO2 VBG O2 Saturation VBG Base Excess Sodium 126 L Potassium 3.7 Chloride 92 L Carbon Dioxide 25 Anion Gap 9.0 BUN 14 Creatinine 1.0 Estimated GFR (MDRD) 52 L Glucose 113 H Calcium 9.6 Total Bilirubin 0.8 AST 30 ALT 25 Alkaline Phosphatase 78 Troponin I High Sens 26.0 H* B-Natriuretic Peptide Total Protein 7.0 Albumin 4.0 Globulin 3.0 Albumin/Globulin Ratio 1.3 Lipase 73 H Nasal Adenovirus (PCR) Nasal B. parapertussis DNA (PCR) Nasal Coronavir 229E PCR Nasal Coronavir HKU1 PCR Nasal Coronavir NL63 PCR Nasal Coronavir OC43 PCR Nasal Enterovir/Rhinovir PCR Nasal Influenza B PCR Nasal Influenza A PCR Nasal Parainfluen 1 PCR Nasal Parainfluen 2 PCR Nasal Parainfluen 3 PCR Nasal Parainfluen 4 PCR Nasal RSV (PCR) Nasal B.pertussis DNA PCR Nasal C.pneumoniae (PCR) Ethan Human Metapneumo PCR Nasal M.pneumoniae (PCR) Nasal SARS-CoV-2 (PCR) 12/31/20 12/31/20 12/31/20 19:00 19:00 19:00 WBC RBC Hgb Hct MCV MCH MCHC RDW Plt Count MPV Neut # (Auto) Lymph # (Auto) [place] # (Auto) Eos # (Auto) Baso # (Auto) Absolute Nucleated RBC Nucleated RBC % D-Dimer > 1050.0 H VBG pH 7.432 H VBG pCO2 40.2 L VBG pO2 45.7 VBG HCO3 26.2 VBG Total CO2 27.4 VBG O2 Saturation 83.7 H VBG Base Excess 1.8 Sodium Potassium Chloride Carbon Dioxide Anion Gap BUN Creatinine Estimated GFR (MDRD) Glucose Calcium Total Bilirubin AST ALT Alkaline Phosphatase Troponin I High Sens B-Natriuretic Peptide 54 Total Protein Albumin Globulin Albumin/Globulin Ratio Lipase Nasal Adenovirus (PCR) Nasal B. parapertussis DNA (PCR) Nasal Coronavir 229E PCR Nasal Coronavir HKU1 PCR Nasal Coronavir NL63 PCR Nasal Coronavir OC43 PCR Nasal Enterovir/Rhinovir PCR Nasal Influenza B PCR Nasal Influenza A PCR Nasal Parainfluen 1 PCR Nasal Parainfluen 2 PCR Nasal Parainfluen 3 PCR Nasal Parainfluen 4 PCR Nasal RSV (PCR) Nasal B.pertussis DNA PCR Nasal C.pneumoniae (PCR) Ethan Human Metapneumo PCR Nasal M.pneumoniae (PCR) Nasal SARS-CoV-2 (PCR) 12/31/20 12/31/20 20:35 22:58 WBC RBC Hgb Hct MCV MCH MCHC RDW Plt Count MPV Neut # (Auto) Lymph # (Auto) [place] # (Auto) Eos # (Auto) Baso # (Auto) Absolute Nucleated RBC Nucleated RBC % D-Dimer VBG pH VBG pCO2 VBG pO2 VBG HCO3 VBG Total CO2 VBG O2 Saturation VBG Base Excess Sodium Potassium Chloride Carbon Dioxide Anion Gap BUN Creatinine Estimated GFR (MDRD) Glucose Calcium Total Bilirubin AST ALT Alkaline Phosphatase Troponin I High Sens 25.5 H* B-Natriuretic Peptide Total Protein Albumin Globulin Albumin/Globulin Ratio Lipase Nasal Adenovirus (PCR) NOT DETECTED Nasal B. parapertussis DNA (PCR) NOT DETECTED Nasal Coronavir 229E PCR NOT DETECTED Nasal Coronavir HKU1 PCR NOT DETECTED Nasal Coronavir NL63 PCR NOT DETECTED Nasal Coronavir OC43 PCR NOT DETECTED Nasal Enterovir/Rhinovir PCR NOT DETECTED Nasal Influenza B PCR NOT DETECTED Nasal Influenza A PCR NOT DETECTED Nasal Parainfluen 1 PCR NOT DETECTED Nasal Parainfluen 2 PCR NOT DETECTED Nasal Parainfluen 3 PCR NOT DETECTED Nasal Parainfluen 4 PCR NOT DETECTED Nasal RSV (PCR) NOT DETECTED Nasal B.pertussis DNA PCR NOT DETECTED Nasal C.pneumoniae (PCR) NOT DETECTED Ethan Human Metapneumo PCR NOT DETECTED Nasal M.pneumoniae (PCR) NOT DETECTED Nasal SARS-CoV-2 (PCR) NOT DETECTED PD MEDICAL DECISION MAKING - ED course ED course: Discussed with daughter about benefits versus risks of giving aspirin for non- STEMI and she agrees that in the setting of subdural hemorrhage 1 week prior we will hold off for now. D-dimer sent for evaluation for pulmonary embolism. 10:30pm - d/w patient and her daughter in regards to hydronephrosis. They are already aware and state she has an intraabdominal mass they are in process of ou tpatient workup with urology. discussed option of hospitalization versus outpatient for elevated troponin with stable ekg X 2 and they would like to stay. d/w hospitalist Dr. Mccloud who recommends trending troponin and if stable or downtrending to dc home with outpatient follow up. patient and daughter agreeable. Departure - Departure Disposition: 01 Home, Self Care Clinical Impression: Elevated troponin, Body aches, Shortness of breath Condition: Good Instructions: ED Dyspnea Shortness of Breath Comments: Ms. Savage was seen in the emergency department for shortness of breath and found to have an increased troponin of 26. This is a blood test for the heart. Her repeat troponin was slightly lower, and her repeat EKG did not show any new changes so we are going to have her follow-up with her primary doctor for refe rral to a internal salesperson. Her CTA of her chest did not show signs of a blood clot or of any masses on the lungs, but there is a possible obstructing mass blocking the right kidney, as we discussed. She should keep her appointment with urology to have this worked up. Please return to the emergency department if you develop any new or worsening symptoms or have other concerns. Discharge Date/Time: 01/01/21 00:18
[2020-12-31] MEDS ORDERED: IOPAMIDOL-300 100 ML VIAL ONE (20:57)
[2020-12-31] MEDS ORDERED: SODIUM CHLORIDE 0.9% 1,000 ML IV STA (21:12)
[2020-12-31] MEDS ORDERED: IOPAMIDOL-300 100 ML VIAL IVP ONE (21:47)
[2020-12-31 21:48] LABS: B. PARAPERTUSSIS- RESP PCR PAN NOT DETECTED; B. PERTUSSIS- RESP PCR PANEL NOT DETECTED; C. PNEUMONIAE- RESP PCR PANEL NOT DETECTED; CORONAVIRUS 229E-RESP PCR NOT DETECTED; CORONAVIRUS HKU1-RESP PCR NOT DETECTED; CORONAVIRUS NL63-RESP PCR NOT DETECTED; CORONAVIRUS OC43-RESP PCR NOT DETECTED; HUMAN METAPNEUMOVIRUS NOT DETECTED; INFLUENZA A- RESP PCR PANEL NOT DETECTED; INFLUENZA B - RESP PCR PANEL NOT DETECTED; M. PNEUMONIAE- RESP PCR PANEL NOT DETECTED; PARAINFLUENZA VIRUS 1 NOT DETECTED; PARAINFLUENZA VIRUS 2 NOT DETECTED; PARAINFLUENZA VIRUS 3 NOT DETECTED; PARAINFLUENZA VIRUS 4 NOT DETECTED; RHINOVIRUS/ENTEROVIRUS NOT DETECTED; RSV- RESP PCR PANEL NOT DETECTED; SARS-CoV-2 -RESP PCR PANEL NOT DETECTED
--- NOTE | 2020-12-31 22:05 | CT Report ---
PROCEDURE: ANGIO CHEST W/WO INDICATIONS: pleuritic chest pain, elevated d-dimer, hospitaliz CONTRAST: IV CONTRAST: Isovue 300 ml: 80 PO CONTRAST: *NO PO CONTRAST TECHNIQUE: After the administration of intravenous contrast, 2 mm thick sections acquired from the pulmonary api padmini to the posterior costophrenic angles. 3-dimensional maximum intensity projection (MIP) coronal a nd sagittal reformats were then acquired through the thorax. For radiation dose reduction, the follow ing was used: automated exposure control, adjustment of mA and/or kV according to patient size. COMPARISON: None FINDINGS: Image quality: Excellent. Pulmonary arteries: Pulmonary arteries are normal in size, and demonstrate no intraluminal filling d efects to suggest central pulmonary embolism. Lungs and pleura: Lungs are clear. No pleural effusions or pneumothorax. Central and peripheral ai rways are patent. Mediastinum: Heart size is normal, without pericardial effusion. No mediastinal or hilar adenopathy . Thoracic aorta is normal in caliber and enhancement. Esophagus is normal in caliber, without hiat al hernia. Bones and chest wall: No suspicious bony lesions. Ribs and thoracic spine appear intact throughout. The thyroid is normal. No axillary or supraclavicular adenopathy. Abdomen: Severe right hydronephrosis and proximal hydroureter. IMPRESSION: 1. No evidence of acute pulmonary emboli. 2. No evidence of acute pulmonary process. 3. Severe right hydronephrosis and proximal hydroureter. Comment: Consider CT abdomen and pelvis. Reviewed by: Garret Murguia MD on 12/31/2020 10:04 PM PDT Approved by: Garret Murguia MD on 12/31/2020 10:04 PM PDT Station ID: [id number]
[2021-01-01 00:03] VITALS: BP 139/64
== END 2021-01-01 00:18 | disposition home or self-care (01) ==
LOC: ED 18:27
DX: R79.89 Other specified abnormal findings of blood chemistry (principal); R07.89 Other chest pain; R06.02 Shortness of breath; N13.30 Unspecified hydronephrosis; R60.0 Localized edema; R53.83 Other fatigue; Z20.822 Contact with and (suspected) exposure to COVID-19; F03.90 Unspecified dementia, unspecified severity, without behavioral disturbance, psychotic disturbance, mood disturbance, and anxiety; Z86.79 Personal history of other diseases of the circulatory system
CPT/HCPCS: 36415; 71045; 71275; 80053; 82803; 83690; 83880; 84484; 85025; 85379; 87631; 93005; 96360; 96361; 99284; Q9967; 0202U

== ENCOUNTER 2021-10-29 10:19 | Emergency (ER) | payer MEDICARE, BC ==
[2021-10-29] MEDS ORDERED: SODIUM CHLORIDE 0.9% 1,000 ML IV STA ×2 (11:24→11:41)
--- NOTE | 2021-10-29 11:45 | ED Physician Documentation ---
History of Present Illness - Stated complaint Stated Complaint: SLUGGISH/DEHYDRATED - Chief complaint Chief Complaint: General - Additonal information Additional information: 86-year-old female is sent to the emergency department for evaluation of suspected dehydration and poor oral intake for the last 5 days. She does have advancing dementia. Her daughter at the bedside specifically states that they simply want to have her labs checked and give her IV fluids. She would like to abstain from evaluating urine for infection or obtaining a CT of her head to evaluate for possible stroke. Daughter states that over the last year patient's dementia has been progressing. She did have a similar episode last spring in which she was brought to the ER for dehydration and improved after IV fluids. Much of the history obtained from the chart and the daughter given patient's worsening dementia Review of Systems Unable to obtain: Dementia Constitutional: denies: Fever, Chills GI: reports: Other (Anorexia). denies: Nausea, Vomiting, Diarrhea Skin: denies: Rash, Abrasion (s) Musculoskeletal: denies: Neck pain, Back pain Neurologic: reports: Generalized weakness Psychiatric: reports: Reviewed and negative PD PAST MEDICAL HISTORY - Past Medical History Cardiovascular: High cholesterol Endocrine/Autoimmune: HyPOthyroidism Musculoskeletal: Other - Past Surgical History Past Surgical History: No - Present Medications Home Medications: Ambulatory Orders Medication Instructions Recorded Confirmed Aspirin [[place] Aspirin] 81 mg PO DAILY 12/25/20 12/31/20 Atorvastatin [Lipitor] 20 mg PO DAILY 12/25/20 12/31/20 Cholecalciferol [Vitamin D3] 2,000 unit PO DAILY 12/25/20 12/31/20 Donepezil [Aricept] 2 tab PO DAILY 12/25/20 12/31/20 Levothyroxine [Synthroid] 75 mcg PO DAILY 12/25/20 12/31/20 Magnesium Hydroxide [Dulcolax] 400 mg PO DAILY 12/25/20 12/31/20 - Allergies Allergies/Adverse Reactions: Allergies Allergy/AdvReac Type Severity Reaction Status Date / Time amoxicillin Allergy Rash Verified 10/29/21 10:32 - Social History Does the pt smoke?: No Smoking Status: Never smoker Does the pt drink ETOH?: No Does the pt have substance abuse?: No - Immunizations Immunizations are current?: Yes - POLST Patient has POLST: Yes PD ED PE NORMAL - General General: No acute distress, Well developed/nourished - HEENT HEENT: PERRL. No: Moist mucous membranes (dry) - Neck Neck: Supple, no meningeal sign, No adenopathy - Cardiac Cardiac: RRR, No murmur - Respiratory Respiratory: No respiratory distress, Clear bilaterally - Abdomen Abdomen: Normal bowel sounds, Soft, Non tender - Back Back: No CVA TTP, No spinal TTP - Derm Derm: Normal color, Warm and dry, No rash - Extremities Extremities: No deformity, No tenderness to palpate, Normal ROM s pain - Neuro Neuro: Alert and oriented X 3, tongue stitcher 2-12 intact Eye Opening: Spontaneous Motor: Obeys Commands Verbal: Oriented GCS Score: 15 Results - Vitals Vitals: Vital Signs - 24 hr 10/29/21 10/29/21 10/29/21 10:25 12:32 14:00 Temperature 36.3 C L Heart Rate 80 79 78 Respiratory 16 16 16 Rate Blood Pressure 104/47 L 122/59 L 140/69 H O2 Saturation 96 96 95 10/29/21 15:54 Temperature 36.5 C Heart Rate 76 Respiratory 16 Rate Blood Pressure 130/70 O2 Saturation 96 Oxygen O2 Source Room air - Labs Labs: Laboratory Tests 10/29/21 10/29/21 10/29/21 12:48 12:48 12:48 WBC 9.2 RBC 4.15 L Hgb 12.9 Hct 37.9 MCV 91.3 MCH 31.1 H MCHC 34.0 RDW 18.4 H Plt Count 213 MPV 10.2 Neut # (Auto) 7.6 H Lymph # (Auto) 0.7 L [place] # (Auto) 0.8 Eos # (Auto) 0.0 Baso # (Auto) 0.0 Absolute Nucleated RBC 0.00 Nucleated RBC % 0.0 Sodium 128 L Potassium 4.6 Chloride 95 L Carbon Dioxide 21 Anion Gap 12.0 BUN 50 H Creatinine 1.3 H Estimated GFR (MDRD) 39 L Glucose 93 Calcium 10.9 H Total Bilirubin 3.1 H AST 324 H ALT 116 H Alkaline Phosphatase 634 H Ammonia Total Protein 6.2 L Albumin 2.7 L Globulin 3.5 Albumin/Globulin Ratio 0.8 L Lipase 109 H TSH 2.61 10/29/21 14:23 WBC RBC Hgb Hct MCV MCH MCHC RDW Plt Count MPV Neut # (Auto) Lymph # (Auto) [place] # (Auto) Eos # (Auto) Baso # (Auto) Absolute Nucleated RBC Nucleated RBC % Sodium Potassium Chloride Carbon Dioxide Anion Gap BUN Creatinine Estimated GFR (MDRD) Glucose Calcium Total Bilirubin AST ALT Alkaline Phosphatase Ammonia 23.8 Total Protein Albumin Globulin Albumin/Globulin Ratio Lipase TSH - Rads (name of study) abd US Radiology: See rad report, Other (Per fastener technologist significant liver metastasis. CBD not dilated. Gallbladder sludge. Mild gallbladder wall thickening. No secondary findings acute cholecystitis. Right renal hydronephrosis.) PD MEDICAL DECISION MAKING - ED course Complexity details: reviewed results, re-evaluated patient, considered differential, d/w patient ED course: 86-year-old female was advised to come to the emergency department to have her anorexia and dehydration evaluated. For the last 5 days she has had very little to eat or drink. She is not having any fevers or abdominal pain. She is mildl y constipated. 9 the daughter wants to minimize the amount of labs and testing that was done. Initially she declined chest x-ray or CT of the head. She simply requested IV fluids and labs to see if there was any but thing reversible. Screening CBC was unremarkable. She is modestly dehydrated with a BUN of 50 and a creatinine of 1.2. She is repleted with 2 L of crystalloid here in the emergency department with good improvement in her lethargy. Unfortunately the serum chemistry also shows markedly abnormal liver function test with a T bili of 3 a marked contrast of abnormal from almost a year ago. I did discuss these findings with the patient and her daughter. Though given her age and the advancing dementia they would like to limit testing. Limited abdominal ultrasound did show extensive liver metastasis with right-sided hydroureter. This finding was discussed with the patient and her mom. The source is likely from the known bladder cancer that the patient has chosen not to treat. We discussed obtaining CT imaging of her chest and abdomen to further define the extent of her metastasis but the patient's daughter declined this. She would again like to limit testing as long as her mother is comfortable. She will follow up with the LICENSED PHYSICAL THERAPIST on Monday to discuss transitioning the patient to palliative care. I did also briefly discussed this case with the patient's LICENSED PHYSICAL THERAPIST who is aware of our concerning findings Departure - Departure Disposition: Home, Self Care Clinical Impression: Liver metastasis, Dehydration Bladder cancer Qualifiers: Bladder location: unspecified site Qualified Code(s): C67.9 - Malignant neoplasm of bladder, unspecified Condition: Serious Record reviewed to determine appropriate education?: Yes Comments: Ewa was sent to the emergency department today for a number of days of poor appetite and lack of oral intake. She is dehydrated and she did receive 2 L of IV fluids. Unfortunately the screening labs showed abnormal liver function tests. The ultrasound unfortunately shows that she has a liver metastasis. This is most likely from her bladder cancer. She also does have some swelling in her r ight kidney, obstruction, likely due to the bladder cancer. As we discussed at the bedside you declined to have CT imaging completed today which I think is appropriate. Ramya Nuñez should consider making a referral on Monday to palliative care to discuss longer-term management of her symptoms. She can also write for MiraLAX a medication that can help alleviate the constipation. I wish both you and your mom well during this journey. Discharge Date/Time: 10/29/21 15:54
[2021-10-29 12:55] LABS: BASOPHILS % (AUTO) 0.2 %; EOSINOPHILS % (AUTO) 0.1 %; HCT - HEMATOCRIT 37.9 % (37.0-47.0); HGB - HEMOGLOBIN 12.9 g/dL (12.0-16.0); LYMPHOCYTES # (AUTO) 0.7 10^3/uL (1.5-3.5); MEAN CORPUSCULAR HEMOGLOBIN 31.1 pg (27.0-31.0); MEAN CORPUSCULAR VOLUME 91.3 fL (81.0-99.0); MEAN PLATELET VOLUME 10.2 fL (7.9-10.8); MONOCYTES # (AUTO) 0.8 10^3/uL (0.0-1.0); MONOCYTES % (AUTO) 8.8 %; NEUTROPHILS # (AUTO) 7.6 10^3/uL (1.5-6.6); NEUTROPHILS % (AUTO) 82.5 %; PLT - PLATELET COUNT 213 10^3/uL (130-450); RED BLOOD COUNT 4.15 10^6/uL (4.20-5.40); RED CELL DISTRIBUTION WIDTH 18.4 % (12.0-15.0); WHITE BLOOD COUNT 9.2 x10^3/uL (4.8-10.8)
[2021-10-29 13:07] LABS: ALBUMIN 2.7 g/dL (3.2-5.5); ALBUMIN/GLOBULIN RATIO 0.8 (1.0-2.2); BILIRUBIN,TOTAL 3.1 mg/dL (0.2-1.0); CALCIUM 10.9 mg/dL (8.5-10.3); CREATININE 1.3 mg/dL (0.4-1.0); POTASSIUM 4.6 mmol/L (3.5-5.0); TOTAL PROTEIN 6.2 g/dL (6.7-8.2)
--- NOTE | 2021-10-29 15:43 | Ultrasound Report ---
PROCEDURE: Abdomen Limited INDICATIONS: elevated LFT TECHNIQUE: Real-time focused scanning was performed of the abdomen, with image documentation. COMPARISON: Reference is made to the renal ultrasound dated October 20, 2020. TECHNIQUE: Sonographic evaluation of the abdomen was performed. Evaluation was targeted in the right upper quadrant. FINDINGS: AORTA: The visualized abdominal aorta is normal. IVC: The visualized IVC is normal. LIVER: Innumerable masses in the liver, compatible with metastatic disease. The liver measures 18.3 cm in length. The portal vein is patent. PANCREAS: The visualized portions of the pancreas are normal. Gallbladder and biliary tree: Gallbladder wall thickening with pericholecystic fluid. Layering slud ge. The common bile duct measures 4.8 mm. RIGHT KIDNEY: Hydronephrosis and hydroureter. Measuring 10.8 cm in length. The renal cortex thickne ss measures 0.8 cm. No ascites. IMPRESSION: 1.Metastatic change of the liver. 2.Redemonstrated right hydronephrosis/hydroureter. 3.Gallbladder wall thickening with pericholecystic fluid and layering sludge. Reviewed by: Austen Heredia MD on 10/29/2021 3:42 PM PST Approved by: Austen Heredia MD on 10/29/2021 3:42 PM PST Station ID: [id number]
[2021-10-29 15:55] VITALS: BP 130/70
== END 2021-10-29 15:54 | disposition home or self-care (01) ==
LOC: ED 10:19
DX: C67.9 Malignant neoplasm of bladder, unspecified (principal); C78.7 Secondary malignant neoplasm of liver and intrahepatic bile duct; E86.0 Dehydration
CPT/HCPCS: 36415; 80053; 82140; 83690; 84443; 85025; 96360; 96361; 99283